=== PATIENT | female | born 1950 | race Caucasian/White ===

== ENCOUNTER → 2017-12-07 | Outpatient (CLI) | payer MEDICARE, BC ==
[2017-12-07] MEDS: GADOBUTROL 7.5 MMOL/7.5 ML VIAL IV ×2 (15:32)
== END | disposition home or self-care (01) ==
LOC: KCIC MRI 14:20
DX: H91.92 Unspecified hearing loss, left ear (principal)
CPT/HCPCS: 70553; A9585

== ENCOUNTER → 2018-05-31 | Outpatient (CLI) | payer MEDICARE, BC ==
[2015-03-05 08:24] VITALS: BP 130/63
[~2018-05-31] MED LIST: ASPI81TA50 PO; FERR325T58 PO; FURO20TA3 PO; HYDR12.58 PO; METO-269 PO; POTA20TA4 PO
--- NOTE | 2018-05-31 11:23 | RAD ---
DATE: 05/31/2018 EXAM: MAMMO LENORA SCREENING BILATERAL HISTORY: Routine screening COMPARISON: 05/30/2017 This study was interpreted with the benefit of Computerized Aided Detection (CAD). Breast Density: SCATTERED The breast parenchyma shows scattered fibroglandular densities. Breast parenchyma level B. FINDINGS: 2-D and 3-D tomosynthesis imaging was performed in CC and MLO projections. A lobulated multinodular process has developed in the upper inner right breast. This this process measures approximately 6 x 2.5 cm. No suspicious microcalcifications are seen in this region. There are scattered benign type calcifications. A 13 mm lymph node is projected over the right axillary region. A similar sized right axillary lymph node was evident on the 05/29/2016 study. The left breast is unremarkable. IMPRESSION: New large multinodular process in the medial right breast suspicious for malignancy. Sonographic evaluation is suggested. BI-RADS CATEGORY: 0 INCOMPLETE: NEEDS ADDITIONAL IMAGING EVALUATION AND/OR PRIOR MAMMOGRAMS FOR COMPARISON. RECOMMENDED FOLLOW-UP: ADD ADDITIONAL IMAGING PQRS compliance statement: Patient information was entered into a reminder system with a target due date for the next mammogram. Mammography is a sensitive method for finding small breast cancers, but it does not detect them all and is not a substitute for careful clinical examination. A negative mammogram does not negate a clinically suspicious finding and should not result in delay in biopsying a clinically suspicious abnormality. "Our facility is accredited by the [employer] Mammography Program."
== END | disposition home or self-care (01) ==
LOC: MAMMO 09:07
PROVIDERS: ATTEND Obstetrics & Gynecology
DX: Z12.31 Encounter for screening mammogram for malignant neoplasm of breast (principal)
CPT/HCPCS: 77063; 77067

== ENCOUNTER → 2018-06-03 | Outpatient (CLI) | payer MEDICARE, BC ==
[2015-03-05 08:24] VITALS: BP 130/63
--- NOTE | 2018-06-03 13:23 | RAD ---
RIGHT BREAST SONOGRAPHY Clinical indications: Abnormal screening mammogram. Findings: High-resolution sonography of the upper aspect of the right breast was performed. At the 12:00 position 3 cm from the nipple, an irregular hypoechoic solid nodule is seen measuring up to 1.9 cm in size with internal color flow. At the 12:00 position 4 cm from the nipple, in irregular hypoechoic solid nodule is seen measuring 1.2 cm in size. These findings correspond to the area of segmental nodularity of the upper aspect of the right breast seen on the screening mammogram. Therefore, the mammogram may indicate more diffuse disease within this segment of the right breast. However, ultrasound-guided biopsy of the larger lesion at the 12:00 position 3 cm from the nipple may be performed. Malignancy is highly suspected. In addition, sonography of the right axillary region was performed. The lymph node seen on the mammogram cannot be seen sonographically. IMPRESSION: There are 2 irregular hypoechoic solid nodules of the 12:00 position of the right breast with the larger one located more anteriorly 3 cm from the nipple. Based on the mammogram findings, the suspicion for malignancy is high. Therefore, recommend ultrasound-guided core biopsy of the larger lesion at the 12:00 position of the right breast 3 cm from the nipple. If the biopsy proves to be malignant, then an MRI study of the breast with gadolinium would be recommended. No sonographic correlate is seen to correspond to the mammographic nodule of the right axillary region. This lymph node is still highly suspicious. Note-I discussed the findings and recommendation for an ultrasound-guided core biopsy of the right breast with the patient after completion of the study at 10:25 AM on June 03, 2018. I told the patient that the biopsy needs to be performed since malignancy of the right breast is a possibility. I told the patient to call her physician's office for further instructions. In addition, the time study technologist, Chris, called the office of Dr. Leana Morgan at 10:30 AM on June 03, 2018 to communicate the message of recommendation for biopsy of the right breast. BI-RADS Category 5, highly suspicious for malignancy. Biopsy is needed.
== END | disposition home or self-care (01) ==
LOC: US 09:01
PROVIDERS: ATTEND Obstetrics & Gynecology
DX: N63.11 Unspecified lump in the right breast, upper outer quadrant (principal)
CPT/HCPCS: 76641

== ENCOUNTER → 2018-06-18 | Outpatient (CLI) | payer MEDICARE, BC ==
[2015-03-05 08:24] VITALS: BP 130/63
--- NOTE | 2018-06-18 09:23 | RAD ---
DATE: 06/18/2018 EXAM: DIGITAL DIAGNOSTIC RT HISTORY: Postbiopsy marker placement confirmation. COMPARISON: 05/31/2018 This study was interpreted with the benefit of Computerized Aided Detection (CAD). FINDINGS: Large area of focal asymmetry is seen in the 12:00 position in the right breast with infiltrative appearance. The postbiopsy marker is seen at 12:00 position. Impression: Acceptable position of the post biopsy marker in the right breast mass.
--- NOTE | 2018-06-18 15:20 | RAD ---
Indication: Right breast biopsy Technique: After explaining risks and benefits of the procedure, informed consent was obtained. Appropriate entry site was chosen over the right breast. The skin was prepped and draped using usual sterile procedure. 1% lidocaine was used for local anesthesia. Under ultrasound guidance 14-gauge biopsy needle was introduced and total of 4 core samples were obtained. After that a postbiopsy marker clip was placed. Comparison: Ultrasound of the right breast from 05/30/2017. Findings: Ill-defined hypoechoic mass with vascularity is seen at 12:00 position on prebiopsy images. Total of 4 core biopsy samples were obtained. Impression: Right breast mass biopsy with no immediate combinations. Patient left the ultrasound suite in stable condition.
--- NOTE | 2018-06-20 10:08 | PATHOLOGY ---
[facility] Accession Number: [id number] . 01 Material submitted: . RIGHT BREAST TISSUE 1200 . 01 Clinical history: . Right breast mass . 02 Diagnosis: Breast tissue, right breast mass needle biopsies: - INVASIVE DUCTAL CARCINOMA, HIGH-GRADE. SEE COMMENT. . (JPM:metal furniture glazier; 06/19/2018) MBR/06/20/2018 . 02 Comment: Sections of the right breast mass needle biopsies reveal an invasive mammary carcinoma. The tumor shows little to no tubule formation, moderate to marked nuclear pleomorphism, and prominent mitotic activity. The invasive carcinoma measures up to approximately 1.5 cm in greatest dimension on the glass slide. There is no lymphovascular tumor invasion. There are no tumor-associated calcifications. The case is also examined by Dr. Ratliff, who concurs with the diagnosis. Breast prognostic studies will be obtained on block A1, the results of which will be reported separately. . (JPM:metal furniture glazier; 06/19/2018) . 02 Electronically signed: . Ross Lozano MD, Pathologist NPI- [id number] . 01 Gross description: . Received in formalin labeled "Reva Harrell, right breast 12:00," are multiple needle cores of yellow-parra fibrofatty tissue measuring 1.7 x 0.6 x 0.2 cm in aggregate dimensions. The tissue submitted in its entirety in cassette A1 through A3. The cold ischemic time is 5 minutes. The total formalin fixation time is 10 hours. (TSD; 06/18/2018) TOB/TOB . 02 Pathologist provided ICD-10: C50.911 . 02 CPT . 020893 Specimen Comment: A courtesy copy of this report has been sent to Specimen Comment: [phone], , . Specimen Comment: Report sent to ,DR FRITZ / DR MOYER Performed at: [address], [place], [place] [id number] MD Gabe Arora MD Phone: [phone] Performed at: 02 [facility] [address] [place], [place] [id number] MD Ross Lozano MD Phone: [phone]
== END | disposition home or self-care (01) ==
LOC: US 07:48
PROVIDERS: ATTEND Obstetrics & Gynecology
DX: C50.911 Malignant neoplasm of unspecified site of right female breast (principal)
CPT/HCPCS: 19083; 77065; 88305; 88361; C1713; 19081; 76942

== ENCOUNTER 2019-06-11 07:47 | Inpatient (IN) | payer MEDICARE, BC ==
[~2019-06-11] VITALS: Ht 157.5 cm; Wt 121.3 kg
--- NOTE | 2019-06-11 08:06 | PHYS DOC ---
Past Medical History Past Medical History: Hypertension Additional Past Medical Histor: obesity Additional Past Surgical Histo: mastectomy, hip surgery Adult General HPI HPI Patient is a 68-year-old female who presents to the emergency department for evaluation. She states she was ambulating with her walker, when the walker slipped out from under her, causing her to fall, landing on her right side. She complains of pain primarily in her right shoulder and right wrist. She was unable to get herself off the floor and called EMS. She denies hitting her head, or any headache, neck pain, back pain. She denies any lower extremity injury or pain. She denies any other painful areas other than her right wrist and shoulder. Palpation and movement of the affected area worsen her pain. There are no alleviating factors to her symptoms. Patient was given 100 g of fentanyl by EMS. Review of Systems Review of Systems Constitutional: Denies fever or chills [] Eyes: Denies change in visual acuity, redness, or eye pain [] HENT: Denies nasal congestion or sore throat [] Respiratory: Denies cough or shortness of breath [] Cardiovascular:The patient denies any shortness of breath, chest pain, palpitations, or orthopnea[] GI: Denies abdominal pain, nausea, vomiting, bloody stools or diarrhea [] : Denies dysuria or hematuria [] Musculoskeletal: Denies back pain or joint pain [] Integument: Denies rash or skin lesions [] Neurologic: Denies headache, focal weakness or sensory changes [] Endocrine: Denies polyuria or polydipsia [] All other systems were reviewed and found to be within normal limits, except as documented in this note. Allergies Allergies Allergies Coded Allergies Type Severity Reaction Last Updated Verified No Known Drug Allergies 03/05/15 No Physical Exam Physical Exam PHYSICAL EXAM: CONSTITUTIONAL: Well developed, well nourished HEAD: normocephalic, atraumatic EENT: PERRL, EOMI. Conjunctivae normal color, sclerae non-icteric; moist mucous membranes. NECK: Supple, non-tender; no meningismus.There is full, painless range of motion of the cervical spine, without any focal bony midline tenderness to palpation. LUNGS: Lungs CTA, breathing even and unlabored. Normal air movement. HEART: Regular rate and rhythm, no murmur CHEST: No deformity; non-tender ABDOMEN: The abdomen is soft, and non-tender, no masses or bruits. EXTREM: There is tenderness to palpation of the right shoulder, with limited range of motion secondary to pain. There is no reproducible tenderness to palpation of the right wrist, there is a healed surgical scar on her right wrist, where she has had a prior fracture with surgical repair. Normal range of motion is present in the right wrist. The forearm and elbow are nontender. The mid and distal humerus are nontender. The remainder the extremities are atraumatic, with Normal ROM; no deformity, no calf tenderness. Normal pulses palpable in all extremities. There is bilateral 2+ pitting pedal edema, with skin changes consistent with chronic venous stasis. Hips and pelvis are nontender with normal range of motion. SKIN: No rash; no diaphoresis NEURO: Alert; normal speech and cognition; CN's grossly intact; strength grossly intact without focal deficit. BACK: No CVA TTP.There is no bony tenderness to palpation of the thoracic or lumbar spine. Current Patient Data Vital Signs Vital Signs Date Time Temp Pulse Resp B/P (MAP) Pulse Ox O2 Delivery O2 Flow Rate FiO2 06/11/19 07:58 70 16 Room Air 06/11/19 07:47 98.4 159/66 (97) 98 98.4 EKG EKG [] Radiology/Procedures Radiology/Procedures [] PROCEDURE: WRIST 3V RIGHT EXAM: Right wrist, 3 views; right shoulder, 3 views. HISTORY: Fall. Pain. COMPARISON: None. FINDINGS: Right wrist: 3 views of the right wrist are obtained. There is radiocarpal joint space narrowing with suspected degenerative subchondral sclerosis. There is suspected positive ulnar variance. No acute fracture is seen. Right shoulder: 3 views of the right shoulder obtained. There is a displaced fracture of the humeral head and neck. There is mild acromioclavicular joint space narrowing and spurring. There are surgical clips within the right axilla. There are degenerative changes within the visualized cervical spine. IMPRESSION: Displaced right humeral head and neck fracture. Course & Med Decision Making Course & Med Decision Making Pertinent Labs and Imaging studies reviewed. (See chart for details) []8:30 AM: X-ray images reviewed, there appears to be a displaced humeral neck fracture. Orthopedics on-call, Dr. Levin has been paged. 9:15 AM: I spoke with orthopedics on-call. X-rays have been reviewed. Recommended sling, and nonoperative management initially, an outpatient follow- up with the patient is able to ambulate, but if patient is not able to ambulate or care for herself, inpatient management might be required. 9:40 AM: The patient is able to ambulate but does not think she is going to be able to care for herself, and her ADLs, at home given her arm in a sling. She lives alone. She states she normally ambulates with a cane, not a walk, and had the walker left over from her recovery from her hip surgery, and she states that she has found it easier to get up from a seated position using the walker, hence she was using her walker today when she fell. I discussed the case with the hospitalist who will admit the patient for further evaluation and likely help arrange rehabilitation placement for the patient. Dragon Disclaimer Dragon Disclaimer This electronic medical record was generated, in whole or in part, using a voice recognition dictation system. Departure Departure Impression: Primary Impression: Fracture of neck of humerus Disposition: ADMITTED INPATIENT Admitting Physician: SHAHZAD Condition: STABLE Referrals: LV FRITZ MD (PCP) LADARIUS CUMMINS MD Jun 11, 2019 08:05
--- NOTE | 2019-06-11 08:38 | RAD ---
EXAM: Right wrist, 3 views; right shoulder, 3 views. HISTORY: Fall. Pain. COMPARISON: None. FINDINGS: Right wrist: 3 views of the right wrist are obtained. There is radiocarpal joint space narrowing with suspected degenerative subchondral sclerosis. There is suspected positive ulnar variance. No acute fracture is seen. Right shoulder: 3 views of the right shoulder obtained. There is a displaced fracture of the humeral head and neck. There is mild acromioclavicular joint space narrowing and spurring. There are surgical clips within the right axilla. There are degenerative changes within the visualized cervical spine. IMPRESSION: Displaced right humeral head and neck fracture. Electronically signed by: Trisha Sarah MD (06/11/2019 8:35 AM) [facility]
--- NOTE | 2019-06-11 09:30 | NUR ---
Pt ambulated a short distance when doctor said pt had ambulated far enough. Satnam (Screen Vent Binder Student) assisted with the application of sling and ambulating pt. After return to bed, pt asked to use restroom. Pt ambulated with minimal assistance from this tech as pt used a cane at home. Pt assisted in cleaning up after using restroom as she was unable to do it for herself. Pt ambulated back to room after using restroom.
--- NOTE | 2019-06-11 09:59 | PDOC1 ---
History and Physical Date of Admission Date of Admission DATE: 06/11/19 TIME: 09:57 Identification/Chief Complaint Chief Complaint seen in er , she was ambulating with her walker, when the walker slipped out from under her, causing her to fall, landing on her right side. She complains of pain primarily in her right shoulder and right wrist. She was unable to get herself off the floor and called EMS. She denies hitting her head, or any headache, neck pain, back pain. She denies any lower extremity injury or pain. She denies any other painful areas other than her right wrist and shoulder. Palpation and movement of the affected area worsen her pain. Patient was given 100 g of fentanyl by EMS. is ambulatory, but lives alone, is high fall risk Past Medical History Past Medical History Past Medical History Past Medical History Past Medical History: Hypertension Additional Past Medical Histor: obesity Additional Past Surgical Histo: mastectomy, hip surgery fhx obesity Family History Family History: Hypertension Social History Smoke: No ALCOHOL: none Drugs: None Current Problem List Problem List Problems Medical Problems: (1) Fracture of neck of humerus Status: Acute Current Medications Current Medications Current Medications Morphine Sulfate (Morphine Sulfate) 4 mg PRN Q2HR PRN IV PAIN; Start 06/11/19 at 10:00; Stop 06/12/19 at 09:59 Active Scripts Active Reported Aspir-Low (Aspirin) 81 Mg Tablet.dr 1 Tab PO DAILY Iron Supplement (Ferrous Sulfate) 325 Mg Tablet 65 Mg PO DAILY Klor-Con M20 (Potassium Chloride) 20 Meq Tab.er.prt 1 Tab PO BID Furosemide 20 Mg Tablet 1 Tab PO DAILY Hydrochlorothiazide Tablet (Hydrochlorothiazide) 12.5 Mg Tablet 25 Mg PO DAILY Toprol Xl (Metoprolol Succinate) 50 Mg Tab.er.24h 1 Tab PO DAILY Allergies Allergies: Coded Allergies: No Known Drug Allergies (Unverified , 03/05/15) ROS Review of System Review of Systems Review of Systems Constitutional: Denies fever or chills [] Eyes: Denies change in visual acuity, redness, or eye pain [] HENT: Denies nasal congestion or sore throat [] Respiratory: Denies cough or shortness of breath [] Cardiovascular:The patient denies any shortness of breath, chest pain, palpitations, or orthopnea[] GI: Denies abdominal pain, nausea, vomiting, bloody stools or diarrhea [] : Denies dysuria or hematuria [] Musculoskeletal: Denies back pain POS SHOULDER PAIN [] Integument: Denies rash or skin lesions [] Neurologic: Denies headache, focal weakness or sensory changes [] Endocrine: Denies polyuria or polydipsia [] 14 PT systems were reviewed and found to be within normal limits, except as documented Physical Exam Physical Exam Physical Exam Physical Exam PHYSICAL EXAM: CONSTITUTIONAL: Well developed, well nourished HEAD: normocephalic, atraumatic EENT: PERRL, EOMI. Conjunctivae normal color, sclerae non-icteric; moist mucous membranes. NECK: Supple, non-tender; no meningismus.There is full, painless range of motion of the cervical spine, without any focal bony midline tenderness to palpation. LUNGS: Lungs CTA, breathing even and unlabored. Normal air movement. HEART: Regular rate and rhythm, no murmur CHEST: No deformity; non-tender ABDOMEN: The abdomen is soft, and non-tender, no masses or bruits. EXTREM: There is tenderness to palpation of the right shoulder, with limited range of motion secondary to pain. There is no reproducible tenderness to palpation of the right wrist, there is a healed surgical scar on her right wrist, where she has had a prior fracture with surgical repair. Normal range of motion is present in the right wrist. The forearm and elbow are nontender. The mid and distal humerus are nontender. The remainder the extremities are atraumatic, with Normal ROM; no deformity, no calf tenderness. Normal pulses palpable in all extremities. There is bilateral 2+ pitting pedal edema, with skin changes consistent with chronic venous stasis. Hips and pelvis are nontender with normal range of motion. SKIN: No rash; no diaphoresis NEURO: Alert; normal speech and cognition; CN's grossly intact; strength grossly intact without focal deficit. BACK: No CVA TTP.There is no bony tenderness to palpation of the thoracic or lumbar spine. General: Alert, Oriented X3, Cooperative, mild distress HEENT: EOMI, Mucous membr. moist/pink Lungs: Clear to auscultation Breasts: Not examined Abdomen: Soft Rectal Exam: not examined Neuro: Normal speech, Cranial nerves 3-12 NL Psych/Mental Status: Mental status NL, Mood NL Vitals Vitals Vital Signs Date Time Temp Pulse Resp B/P (MAP) Pulse Ox O2 Delivery O2 Flow Rate FiO2 06/11/19 07:58 70 16 Room Air 06/11/19 07:47 98.4 159/66 (97) 98 98.4 Images Images EXAM: Right wrist, 3 views; right shoulder, 3 views. HISTORY: Fall. Pain. COMPARISON: None. FINDINGS: Right wrist: 3 views of the right wrist are obtained. There is radiocarpal joint space narrowing with suspected degenerative subchondral sclerosis. There is suspected positive ulnar variance. No acute fracture is seen. Right shoulder: 3 views of the right shoulder obtained. There is a displaced fracture of the humeral head and neck. There is mild acromioclavicular joint space narrowing and spurring. There are surgical clips within the right axilla. There are degenerative changes within the visualized cervical spine. IMPRESSION: Displaced right humeral head and neck fracture. Electronically signed by: Trisha Sarah MD (06/11/2019 8:35 AM) [place] [id number] DICTATED and SIGNED BY: TRISHA SARAH MD VTE Prophylaxis Ordered VTE Prophylaxis Devices: No VTE Pharmacological Prophylaxi: Yes Assessment/Plan Assessment/Plan IMPRESSION: acute Displaced right humeral head and neck fracture. mechanical fall morbid obesity Hypertension, osteoarthrosis, history of colonic polyps. high fall risk admit ortho consult PT/OT MARCELO MCDONALD MD Jun 11, 2019 09:59
[2019-06-11] MEDS ORDERED: MORPHINE SULFATE 4 MG/ML VIAL. IV PRN (10:00)
[2019-06-11 11:00] VITALS: BP 157/74
[2019-06-11 11:04] LABS: GFR 54.8; POTASSIUM 3.2 mmol/L (3.5-5.1)
[2019-06-11 11:25] LABS: BASO % 0 % (0-3); EOS % 0 % (0-3); HEMATOCRIT 39.9 % (36.0-47.0); HEMOGLOBIN 13.3 g/dL (12.0-15.5); LYMPH # 0.6 x10^3/uL (1.0-4.8); LYMPH % 4 % (24-48); MEAN CORPUSCULAR HEMOGLOBIN 32 pg (25-35); MEAN CORPUSCULAR HGB CONC 33 g/dL (31-37); MEAN CORPUSCULAR VOLUME 95 fL (79-100); MONO # 0.9 x10^3/uL (0.0-1.1); MONO % 6 % (0-9); NEUT # 12.8 x10^3/uL (1.8-7.7); NEUT % 89 % (31-73); PLATELET COUNT 133 x10^3/uL (140-400); RED BLOOD COUNT 4.19 x10^6/uL (3.50-5.40); RED CELL DISTRIBUTION WIDTH 15.1 % (11.5-14.5); WHITE BLOOD COUNT 14.3 x10^3/uL (4.0-11.0)
[2019-06-11] MEDS ORDERED: LETR2.5T PO (11:30)
[2019-06-11] MEDS ORDERED: CALC-104 PO (11:33)
[2019-06-11] MEDS ORDERED: POTASSIUM CHLORIDE 20 MEQ TABLET.ER. PO ONE (12:15)
[2019-06-11] MEDS ORDERED: HYDROmorphone 2 MG/ML VIAL IV PRN (12:45)
[2019-06-11] MEDS: oxyCODONE/APAP 5/325 1 TAB TABLET PO PRN ×3 (12:58→21:39)
[2019-06-11 13:21] LABS: % BANDS 5 % (0-9); % LYMPHS 4 % (24-48); % MONOS 4 % (0-10); % SEGS 87 % (35-66)
[2019-06-11 13:22] LABS: PLT ESTIMATE ADEQUATE (ADEQUATE)
[2019-06-11 15:00] VITALS: BP 135/58
[2019-06-11] MEDS: CALCIUM CARB/VIT D3 500/200 TABLET. PO SCH (17:00)
[2019-06-11] MEDS: POTASSIUM CHLORIDE 20 MEQ TABLET.ER. PO SCH (17:01)
[2019-06-11 19:00] VITALS: BP 121/54
[2019-06-11 23:00] VITALS: BP 159/72
[2019-06-11 23:22] LABS: BILIRUBIN,URINE NEGATIVE (NEG); CLARITY,URINE CLEAR; COLOR,URINE YELLOW; NITRITE,URINE NEGATIVE (NEG); PROTEIN,URINE NEGATIVE (NEG-TRACE); UROBILINOGEN,URINE 0.2 mg/dL (0.2 mg/dL)
[2019-06-11 23:27] LABS: BACTERIA,URINE 0 /HPF (0-FEW); RBC,URINE 0 /HPF (0-2); SQUAMOUS EPITHELIAL CELL,UR FEW /LPF; WBC,URINE 0 /HPF (0-4)
[2019-06-12 03:00] VITALS: BP 185/72
[2019-06-12] MEDS: oxyCODONE/APAP 5/325 1 TAB TABLET PO PRN ×3 (03:12→17:13)
[2019-06-12 07:00] VITALS: BP 136/66
[2019-06-12] MEDS ORDERED: cloNIDine HCL 0.1 MG TABLET PO PRN (07:30)
[2019-06-12] MEDS ORDERED: POTASSIUM CHLORIDE 20 MEQ TABLET.ER. PO SCH (08:00)
[2019-06-12 08:28] LABS: BASO % 0 % (0-3); EOS # 0.1 x10^3/uL (0.0-0.7); EOS % 1 % (0-3); HEMATOCRIT 35.4 % (36.0-47.0); LYMPH # 1.2 x10^3/uL (1.0-4.8); LYMPH % 14 % (24-48); MEAN CORPUSCULAR HEMOGLOBIN 32 pg (25-35); MEAN CORPUSCULAR HGB CONC 34 g/dL (31-37); MEAN CORPUSCULAR VOLUME 95 fL (79-100); MONO % 12 % (0-9); NEUT # 6.4 x10^3/uL (1.8-7.7); NEUT % 74 % (31-73); PLATELET COUNT 119 x10^3/uL (140-400); RED BLOOD COUNT 3.72 x10^6/uL (3.50-5.40); RED CELL DISTRIBUTION WIDTH 15.3 % (11.5-14.5); WHITE BLOOD COUNT 8.7 x10^3/uL (4.0-11.0)
--- NOTE | 2019-06-12 08:45 | PDOC ---
PROGRESS NOTES Chief Complaint Chief Complaint acute Displaced right humeral head and neck fracture.- NO immediate surgical plans for now mechanical fall, traumatic morbid obesity Hypertension, osteoarthrosis, history of colonic polyps. 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 History of Present Illness History of Present Illness NO sx this admission per ortho, she will ff up couple weeks with ortho SO i resumed ASA 81 and diet She has head bobbing, claims PCP DR Hill mentioned ETs ALso very tender to touch legs, she said attributed to chemo from breast CA< sees outside heme onc Legs always red and swollen and tender Ortho advised rehab and she is interested complians of carpal tunnel left hand PLAn SW for rehab REg diet Resume ASA 81 Start nsaid to help with pain, swelling and carpal tunnel Cant splint left wrist or else she will not have any hands to eat TRial of gabapentin for neuropathy COnsult physiatry re carpal tunnel left ff up ortho 2 weeks re OR SHe wishes for me to leave her essential tremors alone (no meds) Vitals Vitals Vital Signs Date Time Temp Pulse Resp B/P (MAP) Pulse Ox O2 Delivery O2 Flow Rate FiO2 06/12/19 07:00 98.1 77 18 136/66 (89) 95 Room Air 98.1 Physical Exam General: Alert, Oriented X3, Cooperative, mild distress Heart: Regular rate, Normal S1, No murmurs Lungs: Clear Abdomen: Normal bowel sounds, Soft, No tenderness, No hepatosplenomegaly Extremities: No clubbing, No cyanosis, Normal pulses Skin: Other (RT arm sling, legs red, tender ant cool mildly swollen, no skin breaks) Labs LABS Laboratory Tests Test 06/11/19 10:50 06/11/19 21:30 06/12/19 08:00 White Blood Count 14.3 x10^3/uL (4.0-11.0) 8.7 x10^3/uL (4.0-11.0) Red Blood Count 4.19 x10^6/uL (3.50-5.40) 3.72 x10^6/uL (3.50-5.40) Hemoglobin 13.3 g/dL (12.0-15.5) 12.0 g/dL (12.0-15.5) Hematocrit 39.9 % (36.0-47.0) 35.4 % (36.0-47.0) Mean Corpuscular Volume 95 fL (79-100) 95 fL (79-100) Mean Corpuscular Hemoglobin 32 pg (25-35) 32 pg (25-35) Mean Corpuscular Hemoglobin Concent 33 g/dL (31-37) 34 g/dL (31-37) Red Cell Distribution Width 15.1 % (11.5-14.5) 15.3 % (11.5-14.5) Platelet Count 133 x10^3/uL (140-400) 119 x10^3/uL (140-400) Neutrophils (%) (Auto) 89 % (31-73) 74 % (31-73) Lymphocytes (%) (Auto) 4 % (24-48) 14 % (24-48) Monocytes (%) (Auto) 6 % (0-9) 12 % (0-9) Eosinophils (%) (Auto) 0 % (0-3) 1 % (0-3) Basophils (%) (Auto) 0 % (0-3) 0 % (0-3) Neutrophils # (Auto) 12.8 x10^3/uL (1.8-7.7) 6.4 x10^3/uL (1.8-7.7) Lymphocytes # (Auto) 0.6 x10^3/uL (1.0-4.8) 1.2 x10^3/uL (1.0-4.8) Monocytes # (Auto) 0.9 x10^3/uL (0.0-1.1) 1.0 x10^3/uL (0.0-1.1) Eosinophils # (Auto) 0.0 x10^3/uL (0.0-0.7) 0.1 x10^3/uL (0.0-0.7) Basophils # (Auto) 0.0 x10^3/uL (0.0-0.2) 0.0 x10^3/uL (0.0-0.2) Segmented Neutrophils % 87 % (35-66) Band Neutrophils % 5 % (0-9) Lymphocytes % 4 % (24-48) Monocytes % 4 % (0-10) Platelet Estimate Adequate (ADEQUATE) Sodium Level 143 mmol/L (136-145) Potassium Level 3.2 mmol/L (3.5-5.1) Chloride Level 108 mmol/L (98-107) Carbon Dioxide Level 25 mmol/L (21-32) Anion Gap 10 (6-14) Blood Urea Nitrogen 17 mg/dL (7-20) Creatinine 1.0 mg/dL (0.6-1.0) Estimated GFR (Cockcroft-Gault) 54.8 Glucose Level 157 mg/dL (70-99) Calcium Level 9.0 mg/dL (8.5-10.1) Urine Collection Type Unknown Urine Color Yellow Urine Clarity Clear Urine pH 7.0 Urine Specific [place] 1.010 Urine Protein Negative mg/dL (NEG-TRACE) Urine Glucose (UA) Negative mg/dL (NEG) Urine Ketones (Stick) Negative mg/dL (NEG) Urine Blood Negative (NEG) Urine Nitrite Negative (NEG) Urine Bilirubin Negative (NEG) Urine Urobilinogen Dipstick 0.2 mg/dL (0.2 mg/dL) Urine Leukocyte Esterase Negative (NEG) Urine RBC 0 /HPF (0-2) Urine WBC 0 /HPF (0-4) Urine Squamous Epithelial Cells Few /LPF Urine Bacteria 0 /HPF (0-FEW) Review of Systems Review of Systems pain legs and rt arm, head tremors, left wrist hand hurts and numb Assessment and Plan Assessmemt and Plan Problems Medical Problems: (1) Fracture of neck of humerus Status: Acute Comment Review of Relevant I have reviewed the following items ryan (where applicable) has been applied. Labs Laboratory Tests Test 06/11/19 10:50 06/11/19 21:30 06/12/19 08:00 White Blood Count 14.3 x10^3/uL (4.0-11.0) 8.7 x10^3/uL (4.0-11.0) Red Blood Count 4.19 x10^6/uL (3.50-5.40) 3.72 x10^6/uL (3.50-5.40) Hemoglobin 13.3 g/dL (12.0-15.5) 12.0 g/dL (12.0-15.5) Hematocrit 39.9 % (36.0-47.0) 35.4 % (36.0-47.0) Mean Corpuscular Volume 95 fL (79-100) 95 fL (79-100) Mean Corpuscular Hemoglobin 32 pg (25-35) 32 pg (25-35) Mean Corpuscular Hemoglobin Concent 33 g/dL (31-37) 34 g/dL (31-37) Red Cell Distribution Width 15.1 % (11.5-14.5) 15.3 % (11.5-14.5) Platelet Count 133 x10^3/uL (140-400) 119 x10^3/uL (140-400) Neutrophils (%) (Auto) 89 % (31-73) 74 % (31-73) Lymphocytes (%) (Auto) 4 % (24-48) 14 % (24-48) Monocytes (%) (Auto) 6 % (0-9) 12 % (0-9) Eosinophils (%) (Auto) 0 % (0-3) 1 % (0-3) Basophils (%) (Auto) 0 % (0-3) 0 % (0-3) Neutrophils # (Auto) 12.8 x10^3/uL (1.8-7.7) 6.4 x10^3/uL (1.8-7.7) Lymphocytes # (Auto) 0.6 x10^3/uL (1.0-4.8) 1.2 x10^3/uL (1.0-4.8) Monocytes # (Auto) 0.9 x10^3/uL (0.0-1.1) 1.0 x10^3/uL (0.0-1.1) Eosinophils # (Auto) 0.0 x10^3/uL (0.0-0.7) 0.1 x10^3/uL (0.0-0.7) Basophils # (Auto) 0.0 x10^3/uL (0.0-0.2) 0.0 x10^3/uL (0.0-0.2) Segmented Neutrophils % 87 % (35-66) Band Neutrophils % 5 % (0-9) Lymphocytes % 4 % (24-48) Monocytes % 4 % (0-10) Platelet Estimate Adequate (ADEQUATE) Sodium Level 143 mmol/L (136-145) Potassium Level 3.2 mmol/L (3.5-5.1) Chloride Level 108 mmol/L (98-107) Carbon Dioxide Level 25 mmol/L (21-32) Anion Gap 10 (6-14) Blood Urea Nitrogen 17 mg/dL (7-20) Creatinine 1.0 mg/dL (0.6-1.0) Estimated GFR (Cockcroft-Gault) 54.8 Glucose Level 157 mg/dL (70-99) Calcium Level 9.0 mg/dL (8.5-10.1) Urine Collection Type Unknown Urine Color Yellow Urine Clarity Clear Urine pH 7.0 Urine Specific [place] 1.010 Urine Protein Negative mg/dL (NEG-TRACE) Urine Glucose (UA) Negative mg/dL (NEG) Urine Ketones (Stick) Negative mg/dL (NEG) Urine Blood Negative (NEG) Urine Nitrite Negative (NEG) Urine Bilirubin Negative (NEG) Urine Urobilinogen Dipstick 0.2 mg/dL (0.2 mg/dL) Urine Leukocyte Esterase Negative (NEG) Urine RBC 0 /HPF (0-2) Urine WBC 0 /HPF (0-4) Urine Squamous Epithelial Cells Few /LPF Urine Bacteria 0 /HPF (0-FEW) Laboratory Tests Test 06/11/19 10:50 06/11/19 21:30 06/12/19 08:00 White Blood Count 14.3 x10^3/uL (4.0-11.0) 8.7 x10^3/uL (4.0-11.0) Red Blood Count 4.19 x10^6/uL (3.50-5.40) 3.72 x10^6/uL (3.50-5.40) Hemoglobin 13.3 g/dL (12.0-15.5) 12.0 g/dL (12.0-15.5) Hematocrit 39.9 % (36.0-47.0) 35.4 % (36.0-47.0) Mean Corpuscular Volume 95 fL (79-100) 95 fL (79-100) Mean Corpuscular Hemoglobin 32 pg (25-35) 32 pg (25-35) Mean Corpuscular Hemoglobin Concent 33 g/dL (31-37) 34 g/dL (31-37) Red Cell Distribution Width 15.1 % (11.5-14.5) 15.3 % (11.5-14.5) Platelet Count 133 x10^3/uL (140-400) 119 x10^3/uL (140-400) Neutrophils (%) (Auto) 89 % (31-73) 74 % (31-73) Lymphocytes (%) (Auto) 4 % (24-48) 14 % (24-48) Monocytes (%) (Auto) 6 % (0-9) 12 % (0-9) Eosinophils (%) (Auto) 0 % (0-3) 1 % (0-3) Basophils (%) (Auto) 0 % (0-3) 0 % (0-3) Neutrophils # (Auto) 12.8 x10^3/uL (1.8-7.7) 6.4 x10^3/uL (1.8-7.7) Lymphocytes # (Auto) 0.6 x10^3/uL (1.0-4.8) 1.2 x10^3/uL (1.0-4.8) Monocytes # (Auto) 0.9 x10^3/uL (0.0-1.1) 1.0 x10^3/uL (0.0-1.1) Eosinophils # (Auto) 0.0 x10^3/uL (0.0-0.7) 0.1 x10^3/uL (0.0-0.7) Basophils # (Auto) 0.0 x10^3/uL (0.0-0.2) 0.0 x10^3/uL (0.0-0.2) Segmented Neutrophils % 87 % (35-66) Band Neutrophils % 5 % (0-9) Lymphocytes % 4 % (24-48) Monocytes % 4 % (0-10) Platelet Estimate Adequate (ADEQUATE) Sodium Level 143 mmol/L (136-145) Potassium Level 3.2 mmol/L (3.5-5.1) Chloride Level 108 mmol/L (98-107) Carbon Dioxide Level 25 mmol/L (21-32) Anion Gap 10 (6-14) Blood Urea Nitrogen 17 mg/dL (7-20) Creatinine 1.0 mg/dL (0.6-1.0) Estimated GFR (Cockcroft-Gault) 54.8 Glucose Level 157 mg/dL (70-99) Calcium Level 9.0 mg/dL (8.5-10.1) Urine Collection Type Unknown Urine Color Yellow Urine Clarity Clear Urine pH 7.0 Urine Specific [place] 1.010 Urine Protein Negative mg/dL (NEG-TRACE) Urine Glucose (UA) Negative mg/dL (NEG) Urine Ketones (Stick) Negative mg/dL (NEG) Urine Blood Negative (NEG) Urine Nitrite Negative (NEG) Urine Bilirubin Negative (NEG) Urine Urobilinogen Dipstick 0.2 mg/dL (0.2 mg/dL) Urine Leukocyte Esterase Negative (NEG) Urine RBC 0 /HPF (0-2) Urine WBC 0 /HPF (0-4) Urine Squamous Epithelial Cells Few /LPF Urine Bacteria 0 /HPF (0-FEW) Medications Current Medications Morphine Sulfate (Morphine Sulfate) 4 mg PRN Q2HR PRN IV PAIN Last administered on 06/11/19at 11:40; Start 06/11/19 at 10:00; Stop 06/12/19 at 09:59 Aspirin (Ecotrin) 81 mg DAILY PO ; Start 06/12/19 at 09:00; Stop 06/12/19 at 07:26; Status DC Ferrous Sulfate (Feosol) 325 mg DAILY PO ; Start 06/12/19 at 09:00 Furosemide (Lasix) 20 mg DAILY PO ; Start 06/12/19 at 09:00 Potassium Chloride (Klor-Con) 20 meq TIDWMEALS PO Last administered on 06/11/19at 17:01; Start 06/11/19 at 13:00 Calcium/Vitamin D (Oscal D 500mg/ 200uts) 1 tab BIDWMEALS PO Last administered on 06/11/19at 17:00; Start 06/11/19 at 17:00 Hydrochlorothiazide (Hydrodiuril) 25 mg DAILY PO ; Start 06/12/19 at 09:00 Non-Formulary Medication (Letrozole ) 2.5 mg DAILY PO ; Start 06/12/19 at 09:00; Status UNV Metoprolol Succinate (Toprol Xl) 50 mg DAILY PO ; Start 06/12/19 at 09:00 Potassium Chloride (Klor-Con) 40 meq 1X ONCE PO Last administered on 06/11/19at 12:29; Start 06/11/19 at 12:15; Stop 06/11/19 at 12:16; Status DC Potassium Chloride (Klor-Con) 20 meq DAILYWBKFT PO ; Start 06/12/19 at 08:00; Status UNV Oxycodone/ Acetaminophen (Percocet 5/325) 1 tab PRN Q4HRS PRN PO PAIN Last administered on 06/12/19at 03:12; Start 06/11/19 at 12:45 Hydromorphone HCl (Dilaudid) 1 mg PRN Q3HRS PRN IV SEVERE PAIN Last administered on 06/11/19at 21:39; Start 06/11/19 at 12:45 Clonidine HCl (Catapres) 0.1 mg PRN Q1HR PRN PO HYPERTENSION; Start 06/12/19 at 07:30 Active Scripts Active Reported Citracal + D Maximum Caplet (Calcium Citrate/Vitamin D3) 1 Each Tablet 2 Each PO BID Letrozole 2.5 Mg Tablet 2.5 Mg PO DAILY Aspir-Low (Aspirin) 81 Mg Tablet. 1 Tab PO DAILY Iron Supplement (Ferrous Sulfate) 325 Mg Tablet 65 Mg PO DAILY Klor-Con M20 (Potassium Chloride) 20 Meq Tab.er.prt 1 Tab PO TID Furosemide 20 Mg Tablet 1 Tab PO DAILY Hydrochlorothiazide Tablet (Hydrochlorothiazide) 12.5 Mg Tablet 25 Mg PO DAILY Toprol Xl (Metoprolol Succinate) 50 Mg Tab.er.24h 1 Tab PO DAILY Vitals/I & O Vital Sign - Last 24 Hours 06/11/19 06/11/19 06/11/19 06/11/19 08:45 09:00 09:15 09:30 Pulse 78 76 78 82 Resp 15 11 15 27 Pulse Ox 94 96 96 96 06/11/19 06/11/19 06/11/19 06/11/19 09:45 10:00 11:00 11:30 Temp 97.9 97.9 Pulse 76 82 65 Resp 26 18 B/P (MAP) 157/74 (101) Pulse Ox 97 96 95 O2 Delivery Room Air Room Air 06/11/19 06/11/19 06/11/19 06/11/19 11:40 12:30 12:58 14:30 O2 Delivery Room Air Room Air Room Air Room Air 06/11/19 06/11/19 06/11/19 06/11/19 15:00 17:00 19:00 19:04 Temp 97.9 98.1 97.9 98.1 Pulse 75 77 Resp 18 18 B/P (MAP) 135/58 (83) 121/54 (76) Pulse Ox 95 95 O2 Delivery Room Air Room Air Room Air Room Air 06/11/19 06/11/19 06/11/19 06/11/19 20:00 21:39 21:39 22:09 Resp 20 20 18 Pulse Ox 95 95 94 O2 Delivery Room Air Room Air Room Air Room Air 06/11/19 06/12/19 06/12/19 06/12/19 23:00 03:00 03:12 04:12 Temp 98.4 98.0 98.4 98.0 Pulse 78 79 Resp 18 18 20 20 B/P (MAP) 159/72 (101) 185/72 (109) Pulse Ox 94 94 94 94 O2 Delivery Room Air Room Air Room Air Room Air 06/12/19 07:00 Temp 98.1 98.1 Pulse 77 Resp 18 B/P (MAP) 136/66 (89) Pulse Ox 95 O2 Delivery Room Air Intake and Output 06/11/19 06/11/19 06/12/19 15:00 23:00 07:00 Intake Total 220 ml 300 ml Output Total 350 ml Balance 220 ml -50 ml DHAVAL PALACIOS MD Jun 12, 2019 08:45
[2019-06-12 08:46] LABS: CALCIUM 8.7 mg/dL (8.5-10.1); CREATININE 0.9 mg/dL (0.6-1.0); GFR 61.9
--- NOTE | 2019-06-12 08:48 | PDOC2 ---
CONSULT Date of Consult Date of Consult DATE: 06/12/19 TIME: 08:45 Reason for Consult Reason for Consult: Right proximal humerus fracture Referring Physician Referring Physician: Alena Identification/Chief Complaint Chief Complaint Right shoulder pain History of Present Illness Reason for Visit: Patient is a 68-year-old female who had a ground-level fall and sustained a proximal humerus fracture. She was admitted for inability to take care of herself and for pain control. She tells me that her shoulder pain is quite severe, she feels a diffusely up and down her arm and into her upper trapezius region. It is worse with any attempted movement. His only slightly better at rest. She is feeling better on pain medicine. She tells me that she also had some prior shoulder complaints and was thinking of scheduling appointment in orthopedics to have us look into it. Past Medical History Cardiovascular: HTN Pulmonary: No pertinent hx CENTRAL NERVOUS SYSTEM: Carpal Tunnel Syndrome Heme/Onc: Cancer Past Surgical History Past Surgical History: Cholecystectomy, Mastectomy, Total hip replacement, Tonsillectomy Family History Family History: Hypertension Social History No ALCOHOL: none Drugs: None Current Problem List Problem List Problems Medical Problems: (1) Fracture of neck of humerus Status: Acute Current Medications Current Medications Current Medications Morphine Sulfate (Morphine Sulfate) 4 mg PRN Q2HR PRN IV PAIN Last administered on 06/11/19at 11:40; Start 06/11/19 at 10:00; Stop 06/12/19 at 09:59 Aspirin (Ecotrin) 81 mg DAILY PO ; Start 06/12/19 at 09:00; Stop 06/12/19 at 07:26; Status DC Ferrous Sulfate (Feosol) 325 mg DAILY PO ; Start 06/12/19 at 09:00 Furosemide (Lasix) 20 mg DAILY PO ; Start 06/12/19 at 09:00 Potassium Chloride (Klor-Con) 20 meq TIDWMEALS PO Last administered on 06/11/19at 17:01; Start 06/11/19 at 13:00 Calcium/Vitamin D (Oscal D 500mg/ 200uts) 1 tab BIDWMEALS PO Last administered on 06/11/19at 17:00; Start 06/11/19 at 17:00 Hydrochlorothiazide (Hydrodiuril) 25 mg DAILY PO ; Start 06/12/19 at 09:00 Non-Formulary Medication (Letrozole ) 2.5 mg DAILY PO ; Start 06/12/19 at 09:00; Status UNV Metoprolol Succinate (Toprol Xl) 50 mg DAILY PO ; Start 06/12/19 at 09:00 Potassium Chloride (Klor-Con) 40 meq 1X ONCE PO Last administered on 06/11/19at 12:29; Start 06/11/19 at 12:15; Stop 06/11/19 at 12:16; Status DC Potassium Chloride (Klor-Con) 20 meq DAILYWBKFT PO ; Start 06/12/19 at 08:00; Status UNV Oxycodone/ Acetaminophen (Percocet 5/325) 1 tab PRN Q4HRS PRN PO PAIN Last administered on 06/12/19at 03:12; Start 06/11/19 at 12:45 Hydromorphone HCl (Dilaudid) 1 mg PRN Q3HRS PRN IV SEVERE PAIN Last administered on 06/11/19at 21:39; Start 06/11/19 at 12:45 Clonidine HCl (Catapres) 0.1 mg PRN Q1HR PRN PO HYPERTENSION; Start 06/12/19 at 07:30 Aspirin (Ecotrin) 81 mg DAILYWBKFT PO ; Start 06/13/19 at 08:00; Status UNV Amoxicillin/ Clavulanate Potassium (Augmentin 875/ 125mg) 1 tab BID PO ; Start 06/12/19 at 09:00; Status UNV Gabapentin (Neurontin) 100 mg TID PO ; Start 06/12/19 at 09:00; Status UNV Naproxen (Naprosyn) 500 mg BID PO ; Start 06/12/19 at 09:00; Status UNV Active Scripts Active Reported Citracal + D Maximum Caplet (Calcium Citrate/Vitamin D3) 1 Each Tablet 2 Each PO BID Letrozole 2.5 Mg Tablet 2.5 Mg PO DAILY Aspir-Low (Aspirin) 81 Mg Tablet.dr 1 Tab PO DAILY Iron Supplement (Ferrous Sulfate) 325 Mg Tablet 65 Mg PO DAILY Klor-Con M20 (Potassium Chloride) 20 Meq Tab.er.prt 1 Tab PO TID Furosemide 20 Mg Tablet 1 Tab PO DAILY Hydrochlorothiazide Tablet (Hydrochlorothiazide) 12.5 Mg Tablet 25 Mg PO DAILY Toprol Xl (Metoprolol Succinate) 50 Mg Tab.er.24h 1 Tab PO DAILY Allergies Allergies: Coded Allergies: hydrocodone (Verified Adverse Reaction, Intermediate, dizziness, nausea, 06/11/19) ROS General: No: Chills, Night Sweats, Fatigue, Malaise, Appetite, Other PSYCHOLOGICAL ROS: No: Anxiety, Behavioral Disorder, Concentration difficultie, Decreased libido, Depression, Disorientation, Hallucinations, Hostility, Irritablity, Memory difficulties, Mood Swings, Obsessive thoughts, Physical abuse, Sexual abuse, Sleep disturbances, Suicidal ideation, Other Eyes: No Blurry vision, No Decreased vision, No Double vision, No Dry eyes, No Excessive tearing, No Eye Pain, No Itchy Eyes, No Loss of vision, No Photophobia, No Scotomata, No Uses contacts, No Uses glasses, No Other HEENT: No: Heacaches, Visual Changes, Hearing change, Nasal congestion, Nasal discharge, Oral lesions, Sinus pain, Sore Throat, Epistaxis, Sneezing, Snoring, Tinnitus, Vertigo, Vocal changes, Other ALLERGY AND IMMUNOLOGY: No: Hives, Insect Bite Sensitivity, Itchy/Watery Eyes, Nasal Congestion, Post Nasal Drip, Seasonal Allergies, Other Hematological and Lymphatic: No: Bleeding Problems, Blood Clots, Blood Transfusions, Brusing, Night Sweats, Pallor, Swollen Lymph Nodes, Other ENDOCRINE: No: Breast Changes, Galactorrhea, Hair Pattern Changes, Hot Flashes, Malaise/lethargy, Mood Swings, Palpitations, Polydipsia/polyuria, Skin Changes, Temperature Intolerance, Unexpected Weight Changes, Other Respiratory: No: Cough, Hemoptysis, Orthopnea, Pleuritic Pain, Shortness of breath, SOB with excertion, Sputum Changes, Stridor, Tachypnea, Wheezing, Other Cardiovascular: yes Edema (chronic); No Chest Pain, No Palpitations, No Orthopnea, No Paroxysmal Noc. Dyspnea, No Lt Headedness, No Other Gastrointestinal: No Nausea, No Vomiting, No Abdominal Pain, No Diarrhea, No Constipation, No Melena, No Hematochezia, No Other Genitourinary: No Dysuria, No Frequency, No Incontinence, No Hematuria, No Retention, No Discharge, No Urgency, No Pain, No Flank Pain, No Other, No , No , No , No , No , No , No Musculoskeletal: No Gait Disturbance, No Joint Pain, No Joint Stiffness, No Joint Swelling, No Muscle Pain, No Muscular Weakness, No Pain In:, No Swelling In:, No Other Neurological: No Behavorial Changes, No Bowel/Bladder ControlChng, No Confusion, No Dizziness, No Gait Disturbance, No Headaches, No Impaired Coord/balance, No Memory Loss, No Numbness/Tingling, No Seizures, No Speech Problems, No Tremors, No Visual Changes, No Weakness, No Other Skin: No Dry Skin, No Eczema, No Hair Changes, No Lumps, No Mole Changes, No Mottling, No Nail Changes, No Pruritus, No Rash, No Skin Lesion Changes, No Other, No Acne Physical Exam General: Alert, Oriented X3 HEENT: Atraumatic, EOMI Lungs: Other (respirations are unlabored with symmetric chest rise) Heart: Regular rate Abdomen: Soft, No tenderness Extremities: Other (she has a large amount of edema in her upper and lower extremities) Skin: No rashes Neuro: Strength at 5/5 X4 ext, Sensation intact Psych/Mental Status: Mental status NL, Mood NL MUSCULOSKELETAL: Other (she is ecchymosis over her proximal humerus region. She is in a sling.) Vitals VITALS Vital Signs Date Time Temp Pulse Resp B/P (MAP) Pulse Ox O2 Delivery O2 Flow Rate FiO2 06/12/19 07:00 98.1 77 18 136/66 (89) 95 Room Air 98.1 Labs Labs Laboratory Tests Test 06/11/19 10:50 06/11/19 21:30 06/12/19 08:00 White Blood Count 14.3 x10^3/uL (4.0-11.0) 8.7 x10^3/uL (4.0-11.0) Red Blood Count 4.19 x10^6/uL (3.50-5.40) 3.72 x10^6/uL (3.50-5.40) Hemoglobin 13.3 g/dL (12.0-15.5) 12.0 g/dL (12.0-15.5) Hematocrit 39.9 % (36.0-47.0) 35.4 % (36.0-47.0) Mean Corpuscular Volume 95 fL (79-100) 95 fL (79-100) Mean Corpuscular Hemoglobin 32 pg (25-35) 32 pg (25-35) Mean Corpuscular Hemoglobin Concent 33 g/dL (31-37) 34 g/dL (31-37) Red Cell Distribution Width 15.1 % (11.5-14.5) 15.3 % (11.5-14.5) Platelet Count 133 x10^3/uL (140-400) 119 x10^3/uL (140-400) Neutrophils (%) (Auto) 89 % (31-73) 74 % (31-73) Lymphocytes (%) (Auto) 4 % (24-48) 14 % (24-48) Monocytes (%) (Auto) 6 % (0-9) 12 % (0-9) Eosinophils (%) (Auto) 0 % (0-3) 1 % (0-3) Basophils (%) (Auto) 0 % (0-3) 0 % (0-3) Neutrophils # (Auto) 12.8 x10^3/uL (1.8-7.7) 6.4 x10^3/uL (1.8-7.7) Lymphocytes # (Auto) 0.6 x10^3/uL (1.0-4.8) 1.2 x10^3/uL (1.0-4.8) Monocytes # (Auto) 0.9 x10^3/uL (0.0-1.1) 1.0 x10^3/uL (0.0-1.1) Eosinophils # (Auto) 0.0 x10^3/uL (0.0-0.7) 0.1 x10^3/uL (0.0-0.7) Basophils # (Auto) 0.0 x10^3/uL (0.0-0.2) 0.0 x10^3/uL (0.0-0.2) Segmented Neutrophils % 87 % (35-66) Band Neutrophils % 5 % (0-9) Lymphocytes % 4 % (24-48) Monocytes % 4 % (0-10) Platelet Estimate Adequate (ADEQUATE) Sodium Level 143 mmol/L (136-145) Potassium Level 3.2 mmol/L (3.5-5.1) Chloride Level 108 mmol/L (98-107) Carbon Dioxide Level 25 mmol/L (21-32) Anion Gap 10 (6-14) Blood Urea Nitrogen 17 mg/dL (7-20) Creatinine 1.0 mg/dL (0.6-1.0) Estimated GFR (Cockcroft-Gault) 54.8 Glucose Level 157 mg/dL (70-99) Calcium Level 9.0 mg/dL (8.5-10.1) Urine Collection Type Unknown Urine Color Yellow Urine Clarity Clear Urine pH 7.0 Urine Specific [place] 1.010 Urine Protein Negative mg/dL (NEG-TRACE) Urine Glucose (UA) Negative mg/dL (NEG) Urine Ketones (Stick) Negative mg/dL (NEG) Urine Blood Negative (NEG) Urine Nitrite Negative (NEG) Urine Bilirubin Negative (NEG) Urine Urobilinogen Dipstick 0.2 mg/dL (0.2 mg/dL) Urine Leukocyte Esterase Negative (NEG) Urine RBC 0 /HPF (0-2) Urine WBC 0 /HPF (0-4) Urine Squamous Epithelial Cells Few /LPF Urine Bacteria 0 /HPF (0-FEW) Laboratory Tests Test 06/11/19 10:50 06/11/19 21:30 06/12/19 08:00 White Blood Count 14.3 x10^3/uL (4.0-11.0) 8.7 x10^3/uL (4.0-11.0) Red Blood Count 4.19 x10^6/uL (3.50-5.40) 3.72 x10^6/uL (3.50-5.40) Hemoglobin 13.3 g/dL (12.0-15.5) 12.0 g/dL (12.0-15.5) Hematocrit 39.9 % (36.0-47.0) 35.4 % (36.0-47.0) Mean Corpuscular Volume 95 fL (79-100) 95 fL (79-100) Mean Corpuscular Hemoglobin 32 pg (25-35) 32 pg (25-35) Mean Corpuscular Hemoglobin Concent 33 g/dL (31-37) 34 g/dL (31-37) Red Cell Distribution Width 15.1 % (11.5-14.5) 15.3 % (11.5-14.5) Platelet Count 133 x10^3/uL (140-400) 119 x10^3/uL (140-400) Neutrophils (%) (Auto) 89 % (31-73) 74 % (31-73) Lymphocytes (%) (Auto) 4 % (24-48) 14 % (24-48) Monocytes (%) (Auto) 6 % (0-9) 12 % (0-9) Eosinophils (%) (Auto) 0 % (0-3) 1 % (0-3) Basophils (%) (Auto) 0 % (0-3) 0 % (0-3) Neutrophils # (Auto) 12.8 x10^3/uL (1.8-7.7) 6.4 x10^3/uL (1.8-7.7) Lymphocytes # (Auto) 0.6 x10^3/uL (1.0-4.8) 1.2 x10^3/uL (1.0-4.8) Monocytes # (Auto) 0.9 x10^3/uL (0.0-1.1) 1.0 x10^3/uL (0.0-1.1) Eosinophils # (Auto) 0.0 x10^3/uL (0.0-0.7) 0.1 x10^3/uL (0.0-0.7) Basophils # (Auto) 0.0 x10^3/uL (0.0-0.2) 0.0 x10^3/uL (0.0-0.2) Segmented Neutrophils % 87 % (35-66) Band Neutrophils % 5 % (0-9) Lymphocytes % 4 % (24-48) Monocytes % 4 % (0-10) Platelet Estimate Adequate (ADEQUATE) Sodium Level 143 mmol/L (136-145) Potassium Level 3.2 mmol/L (3.5-5.1) Chloride Level 108 mmol/L (98-107) Carbon Dioxide Level 25 mmol/L (21-32) Anion Gap 10 (6-14) Blood Urea Nitrogen 17 mg/dL (7-20) Creatinine 1.0 mg/dL (0.6-1.0) Estimated GFR (Cockcroft-Gault) 54.8 Glucose Level 157 mg/dL (70-99) Calcium Level 9.0 mg/dL (8.5-10.1) Urine Collection Type Unknown Urine Color Yellow Urine Clarity Clear Urine pH 7.0 Urine Specific [place] 1.010 Urine Protein Negative mg/dL (NEG-TRACE) Urine Glucose (UA) Negative mg/dL (NEG) Urine Ketones (Stick) Negative mg/dL (NEG) Urine Blood Negative (NEG) Urine Nitrite Negative (NEG) Urine Bilirubin Negative (NEG) Urine Urobilinogen Dipstick 0.2 mg/dL (0.2 mg/dL) Urine Leukocyte Esterase Negative (NEG) Urine RBC 0 /HPF (0-2) Urine WBC 0 /HPF (0-4) Urine Squamous Epithelial Cells Few /LPF Urine Bacteria 0 /HPF (0-FEW) Images Images X-rays were interpreted by myself. Displaced humeral neck fracture. Assessment/Plan Assessment/Plan I would recommend placement as she is unable to take care of herself. I will see her back in clinic next week and discuss treatment options with her. She should be nonweightbearing right upper extremity SOULEYMANE ANTHONY II, MD Jun 12, 2019 08:48
[2019-06-12] MEDS ORDERED: ASPIRIN ENTERIC COATED 81 MG TABLET.DR. PO SCH (09:00)
[2019-06-12] MEDS: LETROZOLE 2.5 MG PO SCH (09:00)
[2019-06-12] MEDS: FUROSEMIDE 20 MG TABLET PO SCH (09:50)
[2019-06-12] MEDS: AMOXICILLIN/K CLAV 875/125MG TABLET. PO SCH ×2 (09:51→21:00)
[2019-06-12] MEDS: NAPROXEN 500 MG TABLET PO SCH ×2 (09:51→21:26)
[2019-06-12] MEDS: hydroCHLOROthiazide 25 MG TABLET PO SCH (09:51)
[2019-06-12] MEDS: METOPROLOL SUCC 24HR ER 50 MG TAB.ER.24H. PO SCH (09:52)
[2019-06-12] MEDS: ASPIRIN ENTERIC COATED 81 MG TABLET.DR. PO SCH (09:52)
[2019-06-12] MEDS: POTASSIUM CHLORIDE 20 MEQ TABLET.ER. PO SCH ×3 (09:52→17:13)
[2019-06-12] MEDS: CALCIUM CARB/VIT D3 500/200 TABLET. PO SCH ×2 (09:53→17:12)
[2019-06-12] MEDS: GABAPENTIN 100 MG CAPSULE. PO SCH ×3 (09:53→21:25)
[2019-06-12] MEDS: FERROUS SULFATE 325 MG TABLET. PO SCH (09:53)
[2019-06-12 11:00] VITALS: BP 137/71
--- NOTE | 2019-06-12 12:39 | CONS ---
DATE OF CONSULTATION: 06/12/2019 ATTENDING PHYSICIAN: Manuelito Carvajal MD REASON FOR CONSULTATION: The patient was seen at the request of Dr. Hernandez for rehab evaluation. HISTORY OF PRESENT ILLNESS: This is a 68-year-old female admitted through the Emergency Room on 06/11/2019 while she was walking at home with her walker, walker slipped out from under her causing her to fall landing on her right side. She complains of pain in her right shoulder and wrist. X-rays revealed displaced fracture of right humeral head and neck and mild acromioclavicular joint space narrowing and spurring. Degenerative changes were visualized in the cervical spine. X-ray of her right wrist revealed radiocarpal joint space narrowing with suspected degenerative subchondral sclerosis, suspected positive ulnar variance. No acute fracture was detected in the wrist. The patient complains of pain in her right shoulder. She admits numbness in her left hand. She had right carpal tunnel release in the past. She admits more numbness and pain at nighttime. The patient with known hypertension, obesity, status post mastectomy and hip surgery, also history of lymphedema. She is being followed by lymphedema clinic at [facility]. The patient had a family history of hypertension. ALLERGIES: SHE IS KNOWN ALLERGIC TO HYDROCODONE. She denies any trouble with her bowel or bladder control prior to the present hospitalization. She had been living alone, had two steps with railing to enter the house and she mainly uses a cane to walk. PHYSICAL EXAMINATION: The patient on physical examination today revealed a middle-aged female. She is alert, oriented to time, place, person and circumstance and follows commands appropriately, moves all 4 extremities voluntarily. She had right shoulder immobilized with arm sling. The patient had diffuse tenderness to palpation over right shoulder and also over tendo Achilles bilaterally. The patient had equal perception of touch and pinprick sensation bilaterally, maybe slightly decreased sensory perception over left median nerve distribution in the hand when compared to right side. Negative Tinel sign over median nerve at the wrist and ulnar nerve at the wrist and elbow. Positive Phalen sign at left wrist. The patient had crepitus on range of motion of both knee joints without any obvious knee joint effusion. She had clinical evidence of chronic venous insufficiency of both feet and legs with edema and redness over distal parts of both legs. The patient requires help with bed mobility and transfers. Once up, she made a few steps using a kt walker. No significant tenderness to palpation over lumbar spine area or neck noted. ASSESSMENT: A middle-aged female with recent fall and fracture neck and head of right humerus, onset 06/11/2019 and degenerative joint disease of right wrist, both knees and chronic venous insufficiency of both feet and legs, obesity, hypertension, status post mastectomy and hip surgery. RECOMMENDATIONS: Agree with the plans for physical therapy and occupational therapy to use ice packs to her shoulder to custodial care unit when medically stable for continued care to consider injecting her knees to also try Rooke boot to help with her foot and leg edema and redness. Dr. Hernandez, appreciate asking me to participate in the care of this interesting patient. I will be glad to see her for followup with you on as-needed basis. SHIRA HOGUE MD DR: SADIA/becky JOB#: [id number] / [id number]
[2019-06-12] MEDS: DICLOFENAC SODIUM 1% TOPICAL GEL 100GM TUBE. TP SCH ×2 (13:59→21:00)
[2019-06-12 15:00] VITALS: BP 127/46
--- NOTE | 2019-06-12 15:10 | NUR ---
SW following for discharge planning. Chart reviewed, discussed with RN. Pt is from home alone, is non weight bearing on right arm. Pt reported she would like to go [facility] as is worried about returning home safely. SW awaiting PT/OT notes, pt would like to go [facility] if possible. SW will continue to follow.
[2019-06-12 19:30] VITALS: BP 111/51
[2019-06-12 23:19] VITALS: BP 130/55
[2019-06-13 03:23] VITALS: BP 122/56
[2019-06-13] MEDS: oxyCODONE/APAP 5/325 1 TAB TABLET PO PRN ×3 (04:42→21:37)
[2019-06-13 07:00] VITALS: BP 124/50
[2019-06-13] MEDS ORDERED: NAPR-683 PO (08:53)
[2019-06-13] MEDS ORDERED: GABA-585 PO (08:53)
[2019-06-13] MEDS ORDERED: AMOX1TAB11 PO (08:53)
[2019-06-13] MEDS ORDERED: OXYC1TAB15 PO (08:53)
[2019-06-13] MEDS ORDERED: DICL100G18 TP (08:53)
--- NOTE | 2019-06-13 08:55 | SNU/HH DC ---
DISCHARGE ORDERS DISCHARGE INFORMATION: DISCHARGE DATE: Jun 13, 2019 FINAL DIAGNOSIS Problems Medical Problems: (1) Fracture of neck of humerus Status: Acute CODE STATUS: Code Status: Full GROUP HOME: SNF STAY <30 DAYS: Yes HOSPICE: HOSPICE: No HOSPICE EVAL & TREAT: No LTAC: ADMIT TO LTAC: No POST DISCHARGE ORDERS: ACTIVITY ORDERS: Other, see below (non weight bear RT upper ext) DIET AFTER DISCHARGE: Regular WOUND/INCISION CARE: Ice to area for comfort, Keep wound/cast CDI FOLLOW-UP: PHYSICIAN FOLLOW-UP: hold asa 1 week prior to sx- ff up dr hollins upon snu dc to see when sx TREATMENT/EQUIPMENT ORDERS: Physical Therapy For: Evalulation/Treatment Occupational Therapy For: Evaluation/Treatment DISCHARGE MEDICATIONS: Home Meds Active Scripts Gabapentin (GABAPENTIN ) 100 Mg Capsule, 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, #90 CAP Prov:DHAVAL PALACIOS MD 06/13/19 Oxycodone/Apap 5-325 (PERCOCET 5-325 MG TABLET ) 1 Each Tablet, 1 TAB PO PRN Q4HRS PRN for PAIN, #30 TAB Prov:DHAVAL PALACIOS MD 06/13/19 Diclofenac Sodium (VOLTAREN) 100 Gm Gel..gram., 1 DEBORAH TP BID for pain, #1 EACH Prov:DHAVAL PALACIOS MD 06/13/19 Naproxen (NAPROSYN) 500 Mg Tablet, 500 MG PO BID for pain and swelling for 7 Days, #14 TAB Prov:DHAVAL PALACIOS MD 06/13/19 Amoxicillin/Potassium Clav (AMOX TR-K CLV 875-125 MG TAB) 1 Each Tablet, 1 TAB PO BID for mild cellulitis legs for 7 Days, #14 TAB Prov:DHAVAL PALACIOS MD 06/13/19 Reported Medications Calcium Citrate/Vitamin D3 (CITRACAL + D MAXIMUM CAPLET) 1 Each Tablet, 2 EACH PO BID for supplement, TAB 06/11/19 Letrozole (Letrozole) 2.5 Mg Tablet, 2.5 MG PO DAILY for hormone therapy-chemo 06/11/19 Aspirin (ASPIR-LOW) 81 Mg Tablet.dr, 1 TAB PO DAILY, #30 TAB 3 Refills 03/05/15 Ferrous Sulfate (IRON SUPPLEMENT) 325 Mg Tablet, 65 MG PO DAILY 03/05/15 Potassium Chloride (KLOR-CON M20) 20 Meq Tab.er.prt, 1 TAB PO TID for supplement, #90 TAB 1 Refill 03/05/15 Furosemide (FUROSEMIDE) 20 Mg Tablet, 1 TAB PO DAILY, #90 TAB 1 Refill 03/05/15 Hydrochlorothiazide (HYDROCHLOROTHIAZIDE TABLET) 12.5 Mg Tablet, 25 MG PO DAILY for DIURETIC, TAB 0 Refills 03/05/15 Metoprolol Succinate (TOPROL XL) 50 Mg Tab.er.24h, 1 TAB PO DAILY, #30 TAB 5 Refills 03/05/15 DHAVAL PALACIOS MD Jun 13, 2019 08:55
[2019-06-13] MEDS: DICLOFENAC SODIUM 1% TOPICAL GEL 100GM TUBE. TP SCH ×3 (09:00→21:00)
[2019-06-13] MEDS: LETROZOLE 2.5 MG PO SCH (09:00)
[2019-06-13] MEDS: ASPIRIN ENTERIC COATED 81 MG TABLET.DR. PO SCH (09:22)
[2019-06-13] MEDS: AMOXICILLIN/K CLAV 875/125MG TABLET. PO SCH ×2 (09:23→21:00)
[2019-06-13] MEDS: POTASSIUM CHLORIDE 20 MEQ TABLET.ER. PO SCH ×3 (09:23→17:16)
[2019-06-13] MEDS: FUROSEMIDE 20 MG TABLET PO SCH (09:23)
[2019-06-13] MEDS: FERROUS SULFATE 325 MG TABLET. PO SCH (09:23)
[2019-06-13] MEDS: hydroCHLOROthiazide 25 MG TABLET PO SCH (09:23)
[2019-06-13] MEDS: CALCIUM CARB/VIT D3 500/200 TABLET. PO SCH ×2 (09:23→17:16)
[2019-06-13] MEDS: NAPROXEN 500 MG TABLET PO SCH ×2 (09:24→21:00)
[2019-06-13] MEDS: GABAPENTIN 100 MG CAPSULE. PO SCH ×3 (09:24→21:00)
[2019-06-13] MEDS: METOPROLOL SUCC 24HR ER 50 MG TAB.ER.24H. PO SCH (09:25)
--- NOTE | 2019-06-13 09:34 | NUR ---
[facility] following. Discussed with RN. PT/OT recommending SNU. [facility] faxed referral to [facility] per discussion with pt yesterday. Pt will need one more midnight for Medicare SNU stay. [facility] will continue to follow. Addendum: 06/13/19 at 1114 by YOON PALUMBO [facility] following. Pt has been accepted at [facility] for discharge tomorrow. [facility] faxed discharge paperwork and scripts. SW to set up transportation time. RN notified. Addendum: 06/13/19 at 1621 by YOON PALUMBO Pt will transport to [facility] tomorrow (06/14/19) between 0900 and 0930. Pt choice and rights letter signed and placed on chart. RN notified. No further SW needs.
--- NOTE | 2019-06-13 09:45 | PDOC ---
PROGRESS NOTES Subjective Subjective No new complaints. Objective Objective Vital Signs Date Time Temp Pulse Resp B/P (MAP) Pulse Ox O2 Delivery O2 Flow Rate FiO2 06/13/19 09:25 63 124/50 06/13/19 07:00 98.4 16 95 Room Air 98.4 Intake and Output 06/13/19 07:00 Intake Total 1570 ml Output Total 1875 ml Balance -305 ml Intake Oral 1570 ml Output Urine Total 1875 ml Physical Exam Physical Exam She is alert,sitting in bed with head end of bed elevated and had right arm sling in place. She requires assistance with mobility and self care. Assessment Assessment Problems Medical Problems: (1) Fracture of neck of humerus Status: Acute Plan Plan of Care To SNF when medically stable. Comment Review of Relevant I have reviewed the following items ryan (where applicable) has been applied. Labs Laboratory Tests Test 06/11/19 10:50 06/11/19 21:30 06/12/19 08:00 White Blood Count 14.3 x10^3/uL (4.0-11.0) 8.7 x10^3/uL (4.0-11.0) Red Blood Count 4.19 x10^6/uL (3.50-5.40) 3.72 x10^6/uL (3.50-5.40) Hemoglobin 13.3 g/dL (12.0-15.5) 12.0 g/dL (12.0-15.5) Hematocrit 39.9 % (36.0-47.0) 35.4 % (36.0-47.0) Mean Corpuscular Volume 95 fL (79-100) 95 fL (79-100) Mean Corpuscular Hemoglobin 32 pg (25-35) 32 pg (25-35) Mean Corpuscular Hemoglobin Concent 33 g/dL (31-37) 34 g/dL (31-37) Red Cell Distribution Width 15.1 % (11.5-14.5) 15.3 % (11.5-14.5) Platelet Count 133 x10^3/uL (140-400) 119 x10^3/uL (140-400) Neutrophils (%) (Auto) 89 % (31-73) 74 % (31-73) Lymphocytes (%) (Auto) 4 % (24-48) 14 % (24-48) Monocytes (%) (Auto) 6 % (0-9) 12 % (0-9) Eosinophils (%) (Auto) 0 % (0-3) 1 % (0-3) Basophils (%) (Auto) 0 % (0-3) 0 % (0-3) Neutrophils # (Auto) 12.8 x10^3/uL (1.8-7.7) 6.4 x10^3/uL (1.8-7.7) Lymphocytes # (Auto) 0.6 x10^3/uL (1.0-4.8) 1.2 x10^3/uL (1.0-4.8) Monocytes # (Auto) 0.9 x10^3/uL (0.0-1.1) 1.0 x10^3/uL (0.0-1.1) Eosinophils # (Auto) 0.0 x10^3/uL (0.0-0.7) 0.1 x10^3/uL (0.0-0.7) Basophils # (Auto) 0.0 x10^3/uL (0.0-0.2) 0.0 x10^3/uL (0.0-0.2) Segmented Neutrophils % 87 % (35-66) Band Neutrophils % 5 % (0-9) Lymphocytes % 4 % (24-48) Monocytes % 4 % (0-10) Platelet Estimate Adequate (ADEQUATE) Sodium Level 143 mmol/L (136-145) 144 mmol/L (136-145) Potassium Level 3.2 mmol/L (3.5-5.1) 4.0 mmol/L (3.5-5.1) Chloride Level 108 mmol/L (98-107) 108 mmol/L (98-107) Carbon Dioxide Level 25 mmol/L (21-32) 26 mmol/L (21-32) Anion Gap 10 (6-14) 10 (6-14) Blood Urea Nitrogen 17 mg/dL (7-20) 15 mg/dL (7-20) Creatinine 1.0 mg/dL (0.6-1.0) 0.9 mg/dL (0.6-1.0) Estimated GFR (Cockcroft-Gault) 54.8 61.9 Glucose Level 157 mg/dL (70-99) 103 mg/dL (70-99) Calcium Level 9.0 mg/dL (8.5-10.1) 8.7 mg/dL (8.5-10.1) Urine Collection Type Unknown Urine Color Yellow Urine Clarity Clear Urine pH 7.0 Urine Specific [place] 1.010 Urine Protein Negative mg/dL (NEG-TRACE) Urine Glucose (UA) Negative mg/dL (NEG) Urine Ketones (Stick) Negative mg/dL (NEG) Urine Blood Negative (NEG) Urine Nitrite Negative (NEG) Urine Bilirubin Negative (NEG) Urine Urobilinogen Dipstick 0.2 mg/dL (0.2 mg/dL) Urine Leukocyte Esterase Negative (NEG) Urine RBC 0 /HPF (0-2) Urine WBC 0 /HPF (0-4) Urine Squamous Epithelial Cells Few /LPF Urine Bacteria 0 /HPF (0-FEW) 25-Hydroxy Vitamin D Total 33.1 ng/mL (30-100) Medications Current Medications Morphine Sulfate (Morphine Sulfate) 4 mg PRN Q2HR PRN IV PAIN Last administered on 06/11/19at 11:40; Start 06/11/19 at 10:00; Stop 06/12/19 at 09:59; Status DC Aspirin (Ecotrin) 81 mg DAILY PO ; Start 06/12/19 at 09:00; Stop 06/12/19 at 07:26; Status DC Ferrous Sulfate (Feosol) 325 mg DAILY PO Last administered on 06/13/19 09:23; Start 06/12/19 at 09:00 Furosemide (Lasix) 20 mg DAILY PO Last administered on 06/13/19 09:23; Start 06/12/19 at 09:00 Potassium Chloride (Klor-Con) 20 meq TIDWMEALS PO Last administered on 06/13/19 09:23; Start 06/11/19 at 13:00 Calcium/Vitamin D (Oscal D 500mg/ 200uts) 1 tab BIDWMEALS PO Last administered on 06/13/19 09:23; Start 06/11/19 at 17:00 Hydrochlorothiazide (Hydrodiuril) 25 mg DAILY PO Last administered on 9at 09:23; Start 06/12/19 at 09:00 Non-Formulary Medication (Letrozole ) 2.5 mg DAILY PO ; Start 06/12/19 at 09:00; Status UNV Metoprolol Succinate (Toprol Xl) 50 mg DAILY PO Last administered on 06/13/19 09:25; Start 06/12/19 at 09:00 Potassium Chloride (Klor-Con) 40 meq 1X ONCE PO Last administered on 06/11/19 12:29; Start 06/11/19 at 12:15; Stop 06/11/19 at 12:16; Status DC Potassium Chloride (Klor-Con) 20 meq DAILYWBKFT PO ; Start 06/12/19 at 08:00; Status UNV Oxycodone/ Acetaminophen (Percocet 5/325) 1 tab PRN Q4HRS PRN PO PAIN Last administered on 06/13/19 04:42; Start 06/11/19 at 12:45 Hydromorphone HCl (Dilaudid) 1 mg PRN Q3HRS PRN IV SEVERE PAIN Last administered on 06/11/19 21:39; Start 06/11/19 at 12:45 Clonidine HCl (Catapres) 0.1 mg PRN Q1HR PRN PO HYPERTENSION; Start 06/12/19 at 07:30 Aspirin (Ecotrin) 81 mg DAILYWBKFT PO Last administered on 06/13/19 09:22; Start 06/12/19 at 09:30 Amoxicillin/ Clavulanate Potassium (Augmentin 875/ 125mg) 1 tab BID PO Last administered on 06/13/19 09:23; Start 06/12/19 at 09:00 Gabapentin (Neurontin) 100 mg TID PO Last administered on 06/13/19 09:24; Start 06/12/19 at 09:00 Naproxen (Naprosyn) 500 mg BID PO Last administered on 06/13/19 09:24; Start 06/12/19 at 09:00 Diclofenac Sodium (Voltaren) 1 eyad BID TP Last administered on 06/12/19at 13:59; Start 06/12/19 at 13:30 Active Scripts Active Gabapentin (Gabapentin) 100 Mg Capsule 100 Mg PO TID Percocet 5-325 Mg Tablet (Oxycodone/Acetaminophen) 1 Each Tablet 1 Tab PO PRN Q4HRS PRN Voltaren (Diclofenac Sodium) 100 Gm Gel..gram. 1 Eyad TP BID Naprosyn (Naproxen) 500 Mg Tablet 500 Mg PO BID 7 Days Amox Tr-K Clv 875-125 Mg Tab (Amoxicillin/Potassium Clav) 1 Each Tablet 1 Tab PO BID 7 Days Reported Citracal + D Maximum Caplet (Calcium Citrate/Vitamin D3) 1 Each Tablet 2 Each PO BID Letrozole 2.5 Mg Tablet 2.5 Mg PO DAILY Aspir-Low (Aspirin) 81 Mg Tablet.dr 1 Tab PO DAILY Iron Supplement (Ferrous Sulfate) 325 Mg Tablet 65 Mg PO DAILY Klor-Con M20 (Potassium Chloride) 20 Meq Tab.er.prt 1 Tab PO TID Furosemide 20 Mg Tablet 1 Tab PO DAILY Hydrochlorothiazide Tablet (Hydrochlorothiazide) 12.5 Mg Tablet 25 Mg PO DAILY Toprol Xl (Metoprolol Succinate) 50 Mg Tab.er.24h 1 Tab PO DAILY Vitals/I & O Vital Sign - Last 24 Hours 06/12/19 06/12/19 06/12/19 06/12/19 09:52 10:55 11:00 11:55 Temp 98.0 98.0 Pulse 77 81 Resp 20 B/P (MAP) 136/66 137/71 (93) Pulse Ox 94 O2 Delivery Room Air Room Air Room Air 06/12/19 06/12/19 06/12/19 06/12/19 15:00 17:13 18:13 19:30 Temp 97.9 98.2 97.9 98.2 Pulse 73 69 Resp 20 18 B/P (MAP) 127/46 (73) 111/51 (71) Pulse Ox 94 92 O2 Delivery Room Air Room Air Room Air Room Air 06/12/19 06/12/19 06/13/19 06/13/19 19:50 23:19 03:23 04:42 Temp 98.6 98.2 98.6 98.2 Pulse 64 66 Resp 18 18 20 B/P (MAP) 130/55 (80) 122/56 (78) Pulse Ox 94 95 O2 Delivery Room Air Room Air Room Air Room Air 06/13/19 06/13/19 06/13/19 05:42 07:00 09:25 Temp 98.4 98.4 Pulse 63 63 Resp 20 16 B/P (MAP) 124/50 (74) 124/50 Pulse Ox 95 O2 Delivery Room Air Room Air Intake and Output 06/12/19 06/12/1919 15:00 23:00 07:00 Intake Total 500 ml 350 ml 720 ml Output Total 275 ml 1600 ml Balance 500 ml 75 ml -880 ml SHIRA HOGUE MD Jun 13, 2019 09:45
--- NOTE | 2019-06-13 10:52 | PDOC3 ---
Discharge Summary Visit Information Date of Admission: Jun 11, 2019 Date of Discharge: Jun 13, 2019 Admitting Diagnosis Comment: acute Displaced right humeral head and neck fracture.- NO immediate surgical plans for now mechanical fall, traumatic morbid obesity Hypertension, osteoarthrosis, history of colonic polyps. 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 Final Diagnosis Problems Medical Problems: (1) Fracture of neck of humerus Status: Acute Brief Hospital Course Allergies Allergies Coded Allergies Type Severity Reaction Last Updated Verified hydrocodone Adverse Reaction Intermediate dizziness, nausea 06/11/19 Yes Vital Signs Vital Signs Date Time Temp Pulse Resp B/P (MAP) Pulse Ox O2 Delivery O2 Flow Rate FiO2 06/13/19 09:25 63 124/50 06/13/19 07:00 98.4 16 95 Room Air 98.4 Lab Results Laboratory Tests Test 06/11/19 10:50 06/11/19 21:30 06/12/19 08:00 White Blood Count 14.3 x10^3/uL (4.0-11.0) 8.7 x10^3/uL (4.0-11.0) Red Blood Count 4.19 x10^6/uL (3.50-5.40) 3.72 x10^6/uL (3.50-5.40) Hemoglobin 13.3 g/dL (12.0-15.5) 12.0 g/dL (12.0-15.5) Hematocrit 39.9 % (36.0-47.0) 35.4 % (36.0-47.0) Mean Corpuscular Volume 95 fL (79-100) 95 fL (79-100) Mean Corpuscular Hemoglobin 32 pg (25-35) 32 pg (25-35) Mean Corpuscular Hemoglobin Concent 33 g/dL (31-37) 34 g/dL (31-37) Red Cell Distribution Width 15.1 % (11.5-14.5) 15.3 % (11.5-14.5) Platelet Count 133 x10^3/uL (140-400) 119 x10^3/uL (140-400) Neutrophils (%) (Auto) 89 % (31-73) 74 % (31-73) Lymphocytes (%) (Auto) 4 % (24-48) 14 % (24-48) Monocytes (%) (Auto) 6 % (0-9) 12 % (0-9) Eosinophils (%) (Auto) 0 % (0-3) 1 % (0-3) Basophils (%) (Auto) 0 % (0-3) 0 % (0-3) Neutrophils # (Auto) 12.8 x10^3/uL (1.8-7.7) 6.4 x10^3/uL (1.8-7.7) Lymphocytes # (Auto) 0.6 x10^3/uL (1.0-4.8) 1.2 x10^3/uL (1.0-4.8) Monocytes # (Auto) 0.9 x10^3/uL (0.0-1.1) 1.0 x10^3/uL (0.0-1.1) Eosinophils # (Auto) 0.0 x10^3/uL (0.0-0.7) 0.1 x10^3/uL (0.0-0.7) Basophils # (Auto) 0.0 x10^3/uL (0.0-0.2) 0.0 x10^3/uL (0.0-0.2) Segmented Neutrophils % 87 % (35-66) Band Neutrophils % 5 % (0-9) Lymphocytes % 4 % (24-48) Monocytes % 4 % (0-10) Platelet Estimate Adequate (ADEQUATE) Sodium Level 143 mmol/L (136-145) 144 mmol/L (136-145) Potassium Level 3.2 mmol/L (3.5-5.1) 4.0 mmol/L (3.5-5.1) Chloride Level 108 mmol/L (98-107) 108 mmol/L (98-107) Carbon Dioxide Level 25 mmol/L (21-32) 26 mmol/L (21-32) Anion Gap 10 (6-14) 10 (6-14) Blood Urea Nitrogen 17 mg/dL (7-20) 15 mg/dL (7-20) Creatinine 1.0 mg/dL (0.6-1.0) 0.9 mg/dL (0.6-1.0) Estimated GFR (Cockcroft-Gault) 54.8 61.9 Glucose Level 157 mg/dL (70-99) 103 mg/dL (70-99) Calcium Level 9.0 mg/dL (8.5-10.1) 8.7 mg/dL (8.5-10.1) Urine Collection Type Unknown Urine Color Yellow Urine Clarity Clear Urine pH 7.0 Urine Specific [place] 1.010 Urine Protein Negative mg/dL (NEG-TRACE) Urine Glucose (UA) Negative mg/dL (NEG) Urine Ketones (Stick) Negative mg/dL (NEG) Urine Blood Negative (NEG) Urine Nitrite Negative (NEG) Urine Bilirubin Negative (NEG) Urine Urobilinogen Dipstick 0.2 mg/dL (0.2 mg/dL) Urine Leukocyte Esterase Negative (NEG) Urine RBC 0 /HPF (0-2) Urine WBC 0 /HPF (0-4) Urine Squamous Epithelial Cells Few /LPF Urine Bacteria 0 /HPF (0-FEW) 25-Hydroxy Vitamin D Total 33.1 ng/mL (30-100) Brief Hospital Course Ms. Harrell is a 68 old white female, obese, who has some non cardiac ,medical issues namely ET's breast cancer s,po mastectomy on chemo by DR lianet wheeler and has neuropathy from chemo but not on meds (PCP dr Monterroso), fall, fractured rt humerus but too much swelling so no immediate surgical plans, BUt will need PPLace so from SNU dc she will ff up Ortho to look at possible rt shoulder replacement, In the meantime, non weight bear on that rt shoulder She did not wish for me to start BB re her chronic ET's - she was quite hesitant re gabapentin to start for the neuropathy. SHe had carpal tunnel left wrist which i addressed with physiatry consult but she seemed disdain about it too,. SNU today with whatever treatment works for her (At least what she thinks). Dc 34 mins cumulative Consults: ortho, physiatry. Proc none Discharge Information Condition at Discharge: Improved, Stable Follow Up: Weeks (dr hollins in snu dc) Disposition/Orders: Other (snu) Scheduled Amoxicillin/Potassium Clav (Amox Tr-K Clv 875-125 Mg Tab) 1 Each Tablet, 1 TAB PO BID for mild cellulitis legs for 7 Days, #14 Prescribed by: DHAVAL PALACIOS on 06/13/19 0853 Aspirin (Aspir-Low) 81 Mg Tablet.dr, 1 TAB PO DAILY, #30 Ref 3 (Reported) Entered as Reported by: PITER SPEARS on 03/05/15730 Last Action: Continued on 06/11/191209 by MARCELO MCDONALD MD Calcium Citrate/Vitamin D3 (Citracal + D Maximum Caplet) 1 Each Tablet, 2 EACH PO BID for supplement, (Reported) Entered as Reported by: LACY CARLTON on 06/11/191132 Last Action: Converted on 06/11/191209 by MARCELO MCDONALD MD Diclofenac Sodium (Voltaren) 100 Gm Gel..gram., 1 DEBORAH TP BID for pain, #1 Prescribed by: DHAVAL PALACIOS on 06/13/19 0853 Ferrous Sulfate (Iron Supplement) 325 Mg Tablet, 65 MG PO DAILY, (Reported) Entered as Reported by: PITER SPEARS on 03/05/15729 Last Action: Continued on 06/11/191209 by MARCELO MCDONALD MD Furosemide (Furosemide) 20 Mg Tablet, 1 TAB PO DAILY, #90 Ref 1 (Reported) Entered as Reported by: PITER SPEARS on 03/05/15729 Last Action: Continued on 06/11/191209 by MARCELO MCDONALD MD Gabapentin (Gabapentin ) 100 Mg Capsule, 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, #90 Prescribed by: DHAVAL PALACIOS on 06/13/19 0853 Hydrochlorothiazide (Hydrochlorothiazide Tablet) 12.5 Mg Tablet, 25 MG PO DAILY for DIURETIC, Ref 0 (Reported) Entered as Reported by: PITER SPEARS on 03/05/15728 Last Action: Converted on 06/11/191209 by MARCELO MCDONALD MD Letrozole (Letrozole) 2.5 Mg Tablet, 2.5 MG PO DAILY for hormone therapy-chemo, (Reported) Entered as Reported by: LACY CARLTON on 06/11/191129 Last Action: Converted on 06/11/191209 by MARCELO MCDONALD MD Metoprolol Succinate (Toprol Xl) 50 Mg Tab.er.24h, 1 TAB PO DAILY, #30 Ref 5 (Reported) Entered as Reported by: PITER SPEARS on 03/05/15728 Last Action: Converted on 06/11/191209 by MARCELO MCDONALD MD Naproxen (Naprosyn) 500 Mg Tablet, 500 MG PO BID for pain and swelling for 7 Days, #14 Prescribed by: DHAVAL PALACIOS on 06/13/19 0853 Potassium Chloride (Klor-Con M20) 20 Meq Tab.er.prt, 1 TAB PO TID for supplement, #90 Ref 1 (Reported) Entered as Reported by: PITER SPEARS on 03/05/15 0730 Last Action: Continued on 06/11/19 1210 by MARCELO MCDONALD MD Scheduled PRN Oxycodone/Apap 5-325 (Percocet 5-325 Mg Tablet ) 1 Each Tablet, 1 TAB PO PRN Q4HRS PRN for PAIN, #30 Prescribed by: DHAVAL PALACIOS on 06/13/19 0853 DHAVAL PALACIOS MD Jun 13, 2019 10:52
[2019-06-13 11:00] VITALS: BP 126/56
[2019-06-13 15:00] VITALS: BP 106/51
[2019-06-13 19:14] VITALS: BP 150/65
[2019-06-13] MEDS: LACTOBACILLUS RHAMNOSUS GG 1 CAPSULE. PO SCH (21:00)
[2019-06-13 23:14] VITALS: BP 129/52
[2019-06-14 03:07] VITALS: BP 147/56
[2019-06-14 07:00] VITALS: BP 147/55
--- NOTE | 2019-06-14 08:46 | NUR ---
Attempt at report called to [facility], nurse stated she would call back.
[2019-06-14] MEDS: LACTOBACILLUS RHAMNOSUS GG 1 CAPSULE. PO SCH (08:48)
[2019-06-14] MEDS: GABAPENTIN 100 MG CAPSULE. PO SCH (08:49)
[2019-06-14] MEDS: CALCIUM CARB/VIT D3 500/200 TABLET. PO SCH (08:49)
[2019-06-14] MEDS: AMOXICILLIN/K CLAV 875/125MG TABLET. PO SCH (08:49)
[2019-06-14] MEDS: hydroCHLOROthiazide 25 MG TABLET PO SCH (08:49)
[2019-06-14] MEDS: FUROSEMIDE 20 MG TABLET PO SCH (08:49)
[2019-06-14] MEDS: FERROUS SULFATE 325 MG TABLET. PO SCH (08:49)
[2019-06-14] MEDS: NAPROXEN 500 MG TABLET PO SCH (08:49)
[2019-06-14] MEDS: ASPIRIN ENTERIC COATED 81 MG TABLET.DR. PO SCH (08:49)
[2019-06-14 08:50] VITALS: BP 147/55
[2019-06-14] MEDS: oxyCODONE/APAP 5/325 1 TAB TABLET PO PRN (08:50)
[2019-06-14] MEDS: POTASSIUM CHLORIDE 20 MEQ TABLET.ER. PO SCH (08:50)
[2019-06-14] MEDS: METOPROLOL SUCC 24HR ER 50 MG TAB.ER.24H. PO SCH (08:50)
[2019-06-14] MEDS: LETROZOLE 2.5 MG PO SCH (08:50)
[2019-06-14] MEDS: DICLOFENAC SODIUM 1% TOPICAL GEL 100GM TUBE. TP SCH (08:51)
--- NOTE | 2019-06-14 09:32 | NUR ---
Pt. transferred to via per transportation service.
[2019-06-27] MEDS ORDERED: POLY17PO29 PO (09:35)
[2019-06-27] MEDS ORDERED: NYST1POW5 MC (09:38)
== END 2019-06-14 09:35 | DRG 563 ==
LOC: ER 07:47 → 4 NORTH 09:49
PROVIDERS: ADMIT Family Medicine; ATTEND Family Medicine
DX: S42.211A Unspecified displaced fracture of surgical neck of right humerus, initial encounter for closed fracture (principal); Z68.42 Body mass index [BMI] 45.0-49.9, adult; C50.919 Malignant neoplasm of unspecified site of unspecified female breast; E66.01 Morbid (severe) obesity due to excess calories; G56.02 Carpal tunnel syndrome, left upper limb; I10 Essential (primary) hypertension; M19.031 Primary osteoarthritis, right wrist; Z96.649 Presence of unspecified artificial hip joint; Z60.2 Problems related to living alone; W01.0XXA Fall on same level from slipping, tripping and stumbling without subsequent striking against object, initial encounter; Z85.3 Personal history of malignant neoplasm of breast; Z87.19 Personal history of other diseases of the digestive system; Z91.81 History of falling; Z82.49 Family history of ischemic heart disease and other diseases of the circulatory system; Z88.8 Allergy status to other drugs, medicaments and biological substances; Y93.89 Activity, other specified; Y92.89 Other specified places as the place of occurrence of the external cause; Y99.8 Other external cause status; G62.0 Drug-induced polyneuropathy
CPT/HCPCS: 36415; 73030; 73110; 80048; 81001; 82306; 85007; 85025; J1170; J2270; 97110; 97116; 97530; 97535; 99285-25; G0378